=== PATIENT | male | born 1995 | race Caucasian/White ===

== ENCOUNTER 2022-04-24 10:20 | Emergency (ER) | payer OTHER, SELFPAY ==
--- NOTE | ~2022-04-24 | XR_ITS ---
EXAMINATION: XR abdomen/kub 1V DATE: 04/24/2022 11:04 INDICATION: Abdominal pain. TECHNIQUE: A supine view of the abdomen on 2 radiographs was obtained. COMPARISON: None. FINDINGS: There are no dilated loops of bowel. There is a moderate volume of stool in the colon. IMPRESSION: 1. Normal bowel gas pattern. Reviewed, dictated and finalized at location A.
[2022-04-24 10:37] VITALS: BP 145/84; PULSE 65; RESP 18; TEMP 36.7; O2SAT 100
--- NOTE | 2022-04-24 11:30 | ED.ABDPAIN ---
HPI - Abdominal Pain General Chief Complaint: Abdominal Pain Stated Complaint: Abdominal Pain Source: patient Mode of arrival: ambulatory History of Present Illness HPI narrative: This is a 26-year-old male who presented to our urgent care with complaints of abdominal pain that he has had for 2 weeks. Patient notes that while he was at home he took gas relief along with stool softeners and papaga enzyme because he felt that his symptoms was caused due to constipation. Patient notes that he regularly has 3 bowel movements a day and his bowel movements have decreased a couple a week. Patient also notes that when he would wake up in the morning he would have abdominal pain to his epigastric and right upper and lower quadrant. He did not take any pain medication for his pain. The patient denies SOB, CP, palpitation, extremity numbness, lightheadedness, dizziness, diarrhea, chills, or fever. Patient has agreed to transport himself to [facility] further diagnostic testing to rule out appendicitis versus bowel obstruction versus diverticulitis. Patient has been accepted by Dr. Enrique. elicited complaint: abdominal pain Related Data Home Medications Medication Instructions Recorded Confirmed No Home Medications 06/12/20 04/24/22 Allergies Allergy/AdvReac Type Severity Reaction Status Date / Time No Known Allergies Allergy Verified 04/24/22 10:54 Review of Systems Review of Systems: A 14 organ system Review of Systems was performed and pertinent positives included in the HPI, otherwise remaining ROS is negative. FOR[facility]LY [facility] Past Medical History Medical History No significant past medical history Surgical History Surgical History No significant past surgical history Social History Social History Smoking status: Never smoker Alcohol intake: never Gender identity (if verbalized by the patient): Male Exam Narrative: GENERAL: This is a well-nourished, well-developed patient, in no apparent distress. HEAD: normocephalic, atraumatic. EYES: PERRL. Sclera clear/white. Vision is grossly intact. EARS: External ears normal, auditory canals clear and without drainage, TMs normal without perforation. Hearing grossly intact. NOSE: External nose normal with no obvious nasal discharge, nares without redness, no rhinorrhea. THROAT: Mucous membranes moist, posterior pharynx clear. NECK: Neck supple, non-tender without lymphadenopathy, masses or thyromegaly. CARDIOVASCULAR: Regular rate and rhythm without murmurs, gallops, or rubs. RESPIRATORY: Clear to auscultation. Breath sounds equal bilaterally. No wheezes, rales, or rhonchi. GASTROINTESTINAL: Abdomen soft, non-tender, nondistended. Bowel sounds are hyperactive. No hepato-splenomegaly, or palpable masses. Abdominal tenderness and guarding to the epigastric area and right upper and lower quadrant. SKIN: warm, intact with no suspicious lesions or rash, good texture and turgor. NEURO: awake, alert, and oriented to person, place and time. There were no obvious focal neurologic abnormalities. EXTREMITIES: Normal range of motion. No edema. No calf tenderness. Course Course Emergency Course: Patient has agreed to transfer himself to [facility] emergency department . Level of Care: Express Care Visit Vital Signs Vital signs: Vital Signs Temperature 98.1 F 04/24/22 10:37 Pulse Rate 65 04/24/22 10:37 Respiratory Rate 18 04/24/22 10:37 Blood Pressure 145/84 H 04/24/22 10:37 Pulse Oximetry 100 04/24/22 10:37 Oxygen Delivery Room Air 04/24/22 10:37 Temperature 98.1 F 04/24/22 10:37 Pulse Rate 65 04/24/22 10:37 Respiratory Rate 18 04/24/22 10:37 Blood Pressure 145/84 H 04/24/22 10:37 Pulse Oximetry 100 04/24/22 10:37 Oxygen Delivery Room Air 04/24/22 10:37
== END 2022-04-24 11:28 | disposition short-term general hospital (02) ==
PROVIDERS: Emergency Provider Nurse Practitioner; PCP Family Medicine
DX: R10.13 Epigastric pain (principal); R10.11 Right upper quadrant pain; R10.31 Right lower quadrant pain
CPT/HCPCS: 74018; 99213; G0463

== ENCOUNTER 2022-04-24 11:44 | Emergency (ER) | payer OTHER, SELFPAY ==
--- NOTE | ~2022-04-24 | CT_ITS ---
EXAMINATION: CT abdomen pelvis w con DATE: 04/24/2022 14:17 INDICATION: generalized ABD pain TECHNIQUE: Computed tomography (CT) of the abdomen and pelvis was performed with 100 mL Omnipaque-350 intravenous contrast. Automated exposure control and iterative reconstruction technique were employe d. The dose-length product was 454.42 mGy-cm. COMPARISON: None. FINDINGS: Lower thorax: Ill-defined groundglass subsegmental and centrilobular opacities in the left lower lobe . Liver: Normal. Biliary/Gallbladder: Gallbladder is normal. No bile duct dilation. Pancreas: No mass or duct dilation. Spleen: Normal. Adrenals:No mass. Kidneys: No mass, stone, or hydronephrosis. GI tract: No small or large bowel dilation. Normal appendix. Mesentery/Peritoneum: No ascites, mass, or free air. Retroperitoneum: No mass. Pelvis: Pelvic organs are within normal limits. Soft Tissues: Soft tissues and body wall unremarkable. Bones: No acute osseous finding. IMPRESSION: Left lower lobe groundglass opacities, may reflect hypersensitivity pneumonitis, respiratory bronchio litis, infectious airways disease, pulmonary hemorrhage, or aspiration. No acute abdominopelvic proce ss detected. Reviewed, dictated and finalized at location K. IMPRESSION: Left lower lobe groundglass opacities, may reflect hypersensitivity pneumonitis , respiratory bronchiolitis, infectious airways disease, pulmonary hemorrhage, or aspiration. No acute abdominopelvic process detected.
[2022-04-24 11:46] VITALS: BP 149/91; PULSE 67; RESP 16; TEMP 36.5; O2SAT 100
[2022-04-24 11:56] LABS: Basophils Percent Auto 0.4 % (0.2-1.2); Eosinophils Absolute Auto 0.1 K/mm3 (0-0.3); Eosinophils Percent Auto 1.2 % (0-4.4); Hematocrit 49.9 % (42.0-52.0); Hemoglobin 17.1 g/dL (14.0-18.0); Immature Granulocyte Absolute 0.01 K/mm3 (0.00-0.031); Immature Granulocyte Percent A 0.2 % (0-0.5); Mean Corpuscular HGB Conc 34.3 g/dl (32-36); Mean Corpuscular Hemoglobin 30.8 pg (26-34); Mean Corpuscular Volume 89.9 fl (80-100); Mean Platelet Volume 8.9 fl (7.4-10.4); Monocytes Absolute Auto 0.5 K/mm3 (0.1-0.6); Monocytes Percent Auto 9.2 % (2.6-8.5); Neutrophils Absolute Auto 2.7 K/mm3 (1.3-6.7); Platelet Count Result 243 k/mm3 (150-375); Red Blood Count 5.55 M/mm3 (4.6-6.20); Red Cell Distribution Width 12.6 % (11.5-14.5)
[2022-04-24 12:07] LABS: Alanine Aminotransferase 31 U/L (6-50); Albumin Level 4.9 g/dL (3.5-5.1); Alkaline Phosphatase 45 U/L (38-126); Anion Gap 14 mmol/L (8-16); Aspartate Amino Transferase 25 U/L (17-59); Bilirubin,Total 1.6 mg/dL (0.2-1.3); Blood Urea Nitrogen 11 mg/dL (9-20); Calcium 9.6 mg/dL (8.4-10.2); Carbon Dioxide 28 mmol/L (22-30); Chloride 103 mmol/L (98-107); Estimated CRCL calculation 113 ml/min; Estimated Glomerular Filt Rate > 60; Glucose 97 mg/dL (65-110); Lipase 138 U/L (23-300); Sodium 145 mmol/L (137-145)
[2022-04-24 12:22] LABS: Add Urine Microscopic? NO; Appearance Urine Clear (Clear); Bilirubin Urine Negative (Negative); Blood Urine Negative (Negative); Color Urine Yellow (Yellow); Glucose Urine UA Negative (Negative); Ketones Urine Negative (Negative); Leukocyte Esterase Ur Negative LEU/UL (Negative); Nitrate Urine Negative (Negative); Protein Urine Negative (Negative); Urobilinogen Urine Negative mg/dL (<2.0)
--- NOTE | 2022-04-24 13:37 | ED.ABDPAIN ---
HPI - Abdominal Pain General Chief Complaint: Abdominal Pain Stated Complaint: abd pain Time Seen by Provider: 04/24/22 13:31 Source: patient Mode of arrival: ambulatory Limitations: no limitations History of Present Illness HPI narrative: Patient presents complaints of generalized abdominal pain that has persisted for 2 weeks. States pain increases in the morning and in the evening but decreases throughout the day. Denies fever, nausea, vomiting or change in bowel movements. Patient was evaluated by his primary care provider this morning and was sent to the ER for further evaluation. Denies history of abdominal problems or surgeries. Related Data Allergies Allergy/AdvReac Type Severity Reaction Status Date / Time No Known Allergies Allergy Verified 04/24/22 11:49 Review of Systems Review of Systems: CONSTITUTIONAL: Denies fever, chills, or sweats. EYES: Denies visual changes, redness, or discharge. ENT: Denies rhinorrhea, congestion, sore throat, or otalgia. CARDIOVASCULAR: Denies chest pain, palpitations, or edema. RESPIRATORY: Denies cough or dyspnea. GASTROINTESTINAL: Generalized abdominal pain. Denies nausea, vomiting, or diarrhea. GENITOURINARY: Denies dysuria or hematuria. SKIN: Denies rash or itching. MUSCULOSKELETAL: Denies back pain, joint pain, or myalgia. NEUROLOGIC: Denies headache, numbness, or weakness. PSYCHIATRIC: Denies anxiety or depression. PMFSH Past Medical History Medical History No significant past medical history Surgical History Surgical History No significant past surgical history Social History Social History Smoking status: Never smoker Alcohol intake: never Gender identity (if verbalized by the patient): Male Exam Narrative: GENERAL: Well-appearing, well-nourished, and in no acute distress. HEAD: Normocephalic, atraumatic. EYES: PERRLA and EOMI. ENT: Nares clear, no rhinorrhea or epistaxis. Mucous membranes moist. NECK: Supple. CHEST: Clear to auscultation. No respiratory distress. HEART: Regular rate and rhythm. No murmur heard. Normal peripheral pulses. ABDOMEN: Soft, generalized tenderness to palpation, nondistended, normal active bowel sounds. EXTREMITIES: Normal range of motion. No edema. SKIN: Warm, dry, no rash. NEURO: No focal deficits. Alert and oriented x3. PSYCH: Normal mood and affect. Course Vital Signs Vital signs: Vital Signs Temperature 36.5 C 04/24/22 11:46 Pulse Rate 67 04/24/22 11:46 Respiratory Rate 16 04/24/22 11:46 Blood Pressure 149/91 H 04/24/22 11:46 Pulse Oximetry 100 04/24/22 11:46 Oxygen Delivery Room Air 04/24/22 11:46 Temperature 36.5 C 04/24/22 11:46 Pulse Rate 67 04/24/22 11:46 Respiratory Rate 16 04/24/22 11:46 Blood Pressure 149/91 H 04/24/22 11:46 Pulse Oximetry 100 04/24/22 11:46 Oxygen Delivery Room Air 04/24/22 11:46 MDM - Abdominal Pain Lab Data Result diagrams: 04/24/22 11:50 04/24/22 11:50 Labs: Lab Results 04/24/22 04/24/22 04/24/22 Range/Units 11:50 11:50 12:01 WBC 5.0 (4.5-10.0) K/mm3 RBC 5.55 (4.6-6.20) M/mm3 Hgb 17.1 (14.0-18.0) g/dL Hct 49.9 (42.0-52.0) % MCV 89.9 (80-100) fl MCH 30.8 (26-34) pg MCHC 34.3 (32-36) g/dl RDW 12.6 (11.5-14.5) % Plt Count 243 (150-375) k/mm3 MPV 8.9 (7.4-10.4) fl Immature Gran % (Auto) 0.2 (0-0.5) % Neut % (Auto) 53.0 (45.5-73.1) % Lymph % (Auto) 36.0 (18.3-44.2) % [place] % (Auto) 9.2 H (2.6-8.5) % Eos % (Auto) 1.2 (0-4.4) % Baso % (Auto) 0.4 (0.2-1.2) % Lymph # (Auto) 1.80 (0.9-3.2) K/mm3 [place] # (Auto) 0.5 (0.1-0.6) K/mm3 Eos # (Auto) 0.1 (0-0.3) K/mm3 Baso # (Auto) 0.0 (0.0-0.1) K/mm3 Abs Immat Gran (auto) 0.01 (0.00-0.031) K
== END 2022-04-24 15:18 | disposition home or self-care (01) ==
LOC: ANHED 13:29
PROVIDERS: General Practice; Emergency Provider Nurse Practitioner; PCP Family Medicine
DX: J18.9 Pneumonia, unspecified organism (principal)
CPT/HCPCS: 36415; 74018; 74177; 80053; 81003; 83690; 85025; 99284; Q9967

== ENCOUNTER → 2022-05-07 10:02 | Outpatient (CLI) | payer OTHER, SELFPAY ==
--- NOTE | ~2022-05-07 | XR_ITS ---
EXAMINATION: XR chest 2V 05/07/2022 10:16 INDICATION: Pneumonia PROCEDURE: 2 view chest COMPARISON: No prior studies for comparison. FINDINGS: The lungs are clear. The cardiomediastinal silhouette is within normal limits. There are no pleural effusions. There is no pneumothorax suspected. IMPRESSION: 1: NO ACUTE CARDIOPULMONARY DISEASE. Reviewed, dictated and finalized at location B.
== END ==
PROVIDERS: PCP Family Medicine; Visit Provider Family Medicine
DX: J18.9 Pneumonia, unspecified organism (principal)
CPT/HCPCS: 71046